=== PATIENT | female | born 1995 | race American Indian/Alaskan Native ===

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

== ENCOUNTER 2018-07-07 20:08 | Emergency (ER) | payer BC, OTHER ==
--- NOTE | 2018-07-07 21:18 | Emergency Department Report ---
ED Female HPI - General Chief complaint: Urogenital-Female Stated complaint: HERPES OUTBREAK Source: patient Mode of arrival: Ambulatory Limitations: No Limitations - History of Present Illness Initial comments: This is a 22-year-old -[place] female who presents for medication for herpes outbreak. Patient states she noticed bumps yesterday to labia minora. Patient states bumps are only tender to touch. She was recently diagnosed with genital herpes by her primary care provider at [facility]. Patient states she was not prescribed medication. She denies vaginal discharge, vaginal bleeding, frequency, urgency, dysuria, or abdominal pain. -: This morning Location: labia Radiation: non-radiating Severity: mild Severity scale (0 -10): 3 Quality: burning Consistency: intermittent Improves with: none Worsens with: none Are you Now?: No Last Menstrual Period: 06/28/18 EDC: 04/04/19 Associated Symptoms: denies other symptoms - Related Data Sexually active: Yes : 0 Para: 0 A: 0 Previous Rx's Medication Instructions Recorded Last Taken Type Benzonatate [Tessalon Perles] 100 mg PO Q8HR PRN #12 capsule 12/26/16 Unknown Rx Bisacodyl [Dulcolax] 10 mg PO DAILY PRN #3 tab 12/26/16 Unknown Rx Cetirizine HCl [ZyrTEC] 10 mg PO QDAY #14 capsule 12/26/16 Unknown Rx Fluticasone [Flonase] 1 spray NS QDAY #1 bottle 12/26/16 Unknown Rx Valacyclovir HCl [Valtrex] 1,000 mg PO BID 10 Days #20 tablet 07/07/18 Unknown Rx Allergies Allergy/AdvReac Type Severity Reaction Status Date / Time No Known Allergies Allergy Unverified 12/26/16 17:41 ED Review of Systems ROS: Stated complaint: HERPES OUTBREAK Other details as noted in HPI Constitutional: no symptoms reported Respiratory: denies: cough, shortness of breath, wheezing Cardiovascular: denies: chest pain, palpitations Gastrointestinal: denies: abdominal pain, nausea, diarrhea Genitourinary: denies: urgency, dysuria, discharge Skin: rash (rash to labia). denies: lesions Neurological: denies: headache, weakness, paresthesias Psychiatric: denies: anxiety, depression ED Past Medical Hx - Past Medical History Additional medical history: Herpes - Surgical History Past Surgical History?: No - Social History Smoking Status: Current Every Day Smoker Substance Use Type: None - Medications Home Medications: Home Medications Medication Instructions Recorded Confirmed Last Taken Type Benzonatate [Tessalon Perles] 100 mg PO Q8HR PRN #12 capsule 12/26/16 Unknown Rx Bisacodyl [Dulcolax] 10 mg PO DAILY PRN #3 tab 12/26/16 Unknown Rx Cetirizine HCl [ZyrTEC] 10 mg PO QDAY #14 capsule 12/26/16 Unknown Rx Fluticasone [Flonase] 1 spray NS QDAY #1 bottle 12/26/16 Unknown Rx Valacyclovir HCl [Valtrex] 1,000 mg PO BID 10 Days #20 tablet 07/07/18 Unknown Rx ED Physical Exam - General Limitations: No Limitations General appearance: alert, in no apparent distress - Respiratory Respiratory exam: Present: normal lung sounds bilaterally. Absent: respiratory distress - Cardiovascular Cardiovascular Exam: Present: regular rate, normal rhythm. Absent: systolic murmur, diastolic murmur, rubs, gallop - GI/Abdominal GI/Abdominal exam: Present: soft, normal bowel sounds. Absent: distended, tenderness, guarding, rebound, rigid, organomegaly, mass - External exam: Present: lesions (erythematous vesicular lesions to bilateral internal labia minora, tenderness) - Neurological Exam Neurological exam: Present: alert, oriented X3 - Psychiatric Psychiatric exam: Present: normal affect, normal mood - Skin Skin exam: Present: warm, dry, intact, normal color. Absent: rash ED Course Vital Signs 07/07/18 07/07/18 20:39 20:53 Temperature 98.0 F 98.0 F Pulse Rate 112 H 112 H Respiratory 16 18 Rate Blood Pressure 127/87 127/87 O2 Sat by Pulse 100 98 Oximetry ED Medical Decision Making - Medical Decision Making This is a 22-year-old -[place] male who presents with vesicular rash to the labia majora for 1 day. Patient was examined by me. History of genital herpes. Vitals are stable and in no acute distress. No labs ordered. Start Valacyclovir 1000 mg by mouth twice a day 10 days with one refill. Discharged home in stable condition. Discussed prevention options. F/U with PCP or Health Department. Critical care attestation.: If time is entered above; I have spent that time in minutes in the direct care of this critically ill patient, excluding procedure time. ED Disposition Clinical Impression: Genital herpes Qualifiers: Herpes simplex infection site: vulvovaginitis Qualified Code(s): A60.04 - Herpesviral vulvovaginitis Disposition: TO HOME OR SELFCARE Is pt being admited?: No Does the pt Need Aspirin: No Condition: Stable Instructions: Genital Herpes Simplex (ED), Safe Sex (ED) Prescriptions: Valacyclovir HCl [Valtrex] 1,000 mg PO BID 10 Days #20 tablet Referrals: JERROD VELAZQUEZ MD [Primary Care Provider] - 3-5 Days DEREK MCCARTNEY [Staff Physician] - 3-5 Days [facility] [Provider Group] - 3-5 Days Time of Disposition: 21:48
== END 2018-07-07 21:50 | disposition home or self-care (01) ==
LOC: ED 20:08
CPT/HCPCS: 99282